=== PATIENT | female | born 1960 | race African-American/Black ===

== ENCOUNTER 2023-02-27 12:50 | Emergency (ER) | payer OTHER, SELFPAY ==
[2023-02-27 13:22] VITALS: BP 174/105; PULSE 73; RESP 18; TEMP 36.7; O2SAT 99; BMI 29.0
--- NOTE | 2023-02-27 13:23 | ED.NECK ---
HPI - Neck Pain/Injury General Chief Complaint: General Medical Stated Complaint: stiff neck Time Seen by Provider: 02/27/23 14:58 Source: patient Mode of arrival: ambulatory Limitations: no limitations History of Present Illness HPI Narrative: 62 yo female presents to the ER for evaluation of acute on chronic right sided neck pain. She reports history of prior surgery on the neck with chronic pain and has been going to physical therapy. She states 4 days ago she had a deep tissue massage at and has had worsening pain and stiffness on the right side of her neck. No headache. She states her neck feels tight and the pain is worse with any palpation or movement. MD complaint: neck pain Onset (ago): day(s) Place: home Radiation: right lateral Severity: severe Quality: aching and spasming Duration: progressively worsening Relieving factors: none Exacerbating factors: movement of extremity and movement of neck Treatments prior to arrival: none Related Data Previous Rx's Medication Instructions Recorded diazepam 5 mg tablet (Valium) 5 mg PO BID PRN muscle spasm #6 02/27/23 tabs lidocaine 5 % topical patch 1 patch topical DAILY #15 ea 02/27/23 naproxen 500 mg tablet 500 mg PO BID PRN pain #20 tabs 02/27/23 oxycodone 5 mg tablet 5 mg PO Q8H PRN severe pain (scale 02/27/23 score 7-10) #9 tabs Allergies Allergy/AdvReac Type Severity Reaction Status Date / Time sumatriptan [From IMITREX] Allergy Unknown CHEST Unverified 06/06/20 18:55 TIGHTNESS PMFSH Social History Social History Advance Directives: Yes Advance Directives Information Provided: No Advance Directives on File: No Physical Exam Vital Signs: Vital Signs: Last Vital Signs Temp 98.0 F 02/27/23 13:22 Pulse 73 02/27/23 13:22 Resp 18 02/27/23 13:22 BP 174/105 H 02/27/23 13:22 Pulse Ox 99 02/27/23 13:22 O2 Del Method Room Air 02/27/23 13:22 BMI result Body Mass Index 29.0 Appearance: Alert. Oriented X3. tearful Head: normocephalic, atraumatic. Eyes: Pupils equal, round and reactive to light. ENT: Pharynx normal. No tonsillar swelling or exudate. Neck: Normal inspection. well healed midline surgical scar. right sided diffuse soft tissue tenderness and palpable spasm extending to the upper trapezius with limited ROM. CVS: Normal heart rate and rhythm. Pulses normal. Respiratory: No respiratory distress. Breath sounds normal. Skin: Skin warm and dry. Normal skin color. Normal skin turgor. No rashes. Extremities: No lower extremity edema. No joint swelling. pain with passive ROM of the right shoulder to 180 degrees Neuro/psych: Oriented X 3. No motor deficit. No sensory deficit. CN II-XII intact. Normal speech and cognition. Course Course Course Narrative: RME- 62 yo female presents to the ER for evaluation of severe nontraumatic bilateral neck pain that started a few days ago after a deep tissue massage a PT. hx rods in the neck. extreme soft tissue tenderness and spasm on exam. no relief with baclofen at home. Plan: medicate and reassess Reevaluation(s) Reevaluation #1: fells much better after meds. stable for d/c home with pain control and outpatient follow up Time: 16:18 Medications Administered Discontinued Medications Generic Name Dose Route Start Last Admin Trade Name Jesusq PRN Reason Stop Dose Admin Diazepam 5 mg 02/27/23 14:58 02/27/23 15:10 Diazepam 10 Mg/2 Ml Cartridge IM 02/27/23 14:59 5 mg STAT STA Administration Ketorolac Tromethamine 30 mg 02/27/23 14:58 02/27/23 15:11 Ketorolac Tromethamine 30 Mg/Ml Vial IM 02/27/23 14:59 30 mg ONCE ONE Administration Oxycodone HCl 5 mg 02/27/23 15:01 02/27/23 15:11 Oxycodone Hcl Immed Release 5 Mg Tablet PO 02/27/23 15:02 5 mg ONCE ONE Administration Medical Decision Making Medical Decision Making MDM Narrative: 62 yo female presents to the ER for evaluation of acute on chronic neck pain after a deep tissue massage 3 days ago at PT. She reports history of similar flare ups in the past. No chiropractic maniculation of the spine. No popping sensation, no headache. doubt carotid dissection. she has tenderness and limited ROM of the muscles on the right side of the neck c/w cervical dystonia. she is tearful and in pain on arrival treated with valium, toradol and oxycodone with improvement in her pain she is stable for d/c with pain control and outpatient follow up Differential Diagnosis Differential Diagnoses: The differential diagnosis associated with the presentation includes torticollism, cervical strain/cervical spasm, less likely dissection Tests considered The following testing was considered but not selected: considered imaging of the neck however deferred given history and exam Prescription Management I considered prescription management with: Pain Medication Critical Care Time Critical Care Time Critical Care Time: No Discharge Plan Discharge Clinical Impression: Acute torticollis Patient Disposition: Home, Self-Care Instructions: Spasmodic Torticollis (ED) Additional Instructions: use moist heat to the area 3-4 times per day, low to medium heat for 20-30 minutes at a time gently work on stretching and range of motion take the prescribed medications as directed do not drive after taking diazepam or oxycodone follow up with your doctor next week If you develop new or worsening symptoms call 911 or come back to the ER for further evaluation. Prescriptions: New diazepam [Valium] 5 mg tablet 5 mg PO BID PRN (Reason: muscle spasm) Qty: 6 0RF oxycodone 5 mg tablet 5 mg PO Q8H PRN (Reason: severe pain (scale score 7-10)) Qty: 9 0RF Rx Instructions: Partial Fill upon patient request. lidocaine 5 % adhesive patch,medicated 1 patch topical DAILY Qty: 15 0RF Rx Instructions: leave on most painful area for up to 12 hrs naproxen 500 mg tablet 500 mg PO BID PRN (Reason: pain) Qty: 20 0RF Referrals: Halina Moore MD [Primary Care Provider] -
[2023-02-27] MEDS: diazePAM 10 MG/2 ML CARTRIDGE 5 MG IM (15:10)
[2023-02-27] MEDS: Ketorolac Tromethamine 30 MG/ML VIAL IM (15:11)
[2023-02-27] MEDS: oxyCODONE HCl Immed Release 5 MG TABLET PO (15:11)
== END 2023-02-27 16:24 | disposition home or self-care (01) ==
PROVIDERS: Emergency Provider Emergency Medicine; PCP Student in an Organized Health Care Education/Training Program
DX: M43.6 Torticollis (principal)
CPT/HCPCS: 96372; 99283; 99284; J1885; J3360

== ENCOUNTER 2023-08-13 11:42 | Emergency (ER) | payer OTHER, SELFPAY ==
--- NOTE | ~2023-08-13 | CT_ITS ---
EXAMINATION: CT ANGIOGRAM CHEST CLINICAL INFORMATION: Chest pain, back pain. COMPARISON: Chest radiograph from earlier the same day TECHNIQUE: Multiple axial images were obtained through the chest after the administration of 70 mL of Omnipaque 350 intravenous contrast. Extensive vascular post-processing including two-dimensional and three-dimensional reformatted images were created and reviewed on an independent workstation. This CT examination was performed using dose optimization techniques as appropriate, variously including the following: *Automated exposure control *Adjustment of mA and/or kV according to patient size (this includes techniques or standardized protocols for targeted exams where dose is matched to indication/reason for exam; i.e. extremities or head) *Use of iterative reconstruction technique DLP: 314 mGy-cm FINDINGS: Vascular: Normal caliber thoracic aorta measuring 3.3 x 3.3 cm at the level the main pulmonary artery. There is a two-vessel aortic arch with early bifurcation of the left carotid from the brachiocephalic artery. Great vessels are all widely patent hemodynamically significant stenosis. There is atherosclerotic calcification of the inferior aspect of the arch. Normal caliber descending thoracic aorta without aneurysm or dissection. The visualized celiac artery and SMA appear patent at their origin. LUNGS: There is mild bronchial wall thickening suggesting small airways disease, no consolidation. Some mild dependent atelectasis in the lung bases. Calcified granuloma in the right upper lobe. No suspicious pulmonary nodules. Pleura: No pleural effusion or pneumothorax. Mediastinum: Enlarged heterogeneous right thyroid gland with a suspected 1.6 cm right thyroid nodule. No mediastinal lymphadenopathy. Normal heart size, no pericardial effusion. No significant coronary artery calcifications. Axilla: No axillary lymphadenopathy. Upper abdomen: Postsurgical change in the stomach. Status post cholecystectomy. There is a low-attenuation left adrenal nodule measuring 3.5 x 2.6 cm mild spondylitic changes in the thoracic spine. No acute abnormalities. CT/CT angio chest aorta IMPRESSION: 1. No acute vascular abnormality in the chest. No aneurysm or dissection. 2. Mild bronchial wall thickening suggesting small airways disease. No consolidation. 3. Enlarged heterogeneous right thyroid gland with a suspected 1.6 cm right thyroid nodule. This can be further evaluated with nonemergent thyroid ultrasound. 4. Low-attenuation left adrenal nodule measuring 3.5 x 2.6 cm. Nonspecific. This can be further evaluated with nonemergent adrenal mass CT or MRI. Fleischner guidelines were followed.
--- NOTE | ~2023-08-13 | XR_ITS ---
EXAMINATION: XR CHEST CLINICAL INFORMATION: Reason for Exam cough COMPARISON: No prior imaging available at the time of dictation. TECHNIQUE: One view of the chest FINDINGS: Lines and tubes: Surgical clips overlie the upper abdomen. Clear lungs. No pleural effusion. No pneumothorax. Ectatic thoracic aorta. Normal cardiac silhouette. XR/XR chest 1V IMPRESSION: 1. Clear lungs. 2. Ectatic thoracic aorta.
[2023-08-13 11:56] VITALS: BP 164/86; PULSE 60; RESP 16; TEMP 36.6; O2SAT 99; BMI 29.9
--- NOTE | 2023-08-13 11:58 | ED_ITS ---
HPI - General Adult General Chief complaint: Dyspnea Stated complaint: difficulty breathing Time Seen by Provider: 08/13/23 14:28 Source: patient and RN notes reviewed Mode of arrival: ambulatory Limitations: no limitations History of Present Illness HPI narrative: This is a 62-year-old female presenting to the emergency department with productive cough with yellow-colored sputum, sore throat, ear pain, and chest pressure the last 3 days. She states that she was recently exposed to someone with COVID. She also reports that she has had back pain, which worsens with walking, with increased shortness of breath. She states that she has had the symptoms for the last several months. She denies any fevers, chills, abdominal pain, nausea, vomiting or diarrhea. She has been taking [id number] cold medicine without any relief. No other complaints or concerns at this time. MD complaint: Cough Onset (ago): day(s) Radiation: non-radiation Relieving factors: none Exacerbating factors: none Associated symptoms: denies other symptoms Treatments prior to arrival: none Related Data Previous Rx's Medication Instructions Recorded diazepam 5 mg tablet (Valium) 5 mg PO BID PRN muscle spasm #6 02/27/23 tabs lidocaine 5 % topical patch 1 patch topical DAILY #15 ea 02/27/23 naproxen 500 mg tablet 500 mg PO BID PRN pain #20 tabs 02/27/23 oxycodone 5 mg tablet 5 mg PO Q8H PRN severe pain (scale 02/27/23 score 7-10) #9 tabs azithromycin 250 mg tablet See Rx Instructions PO .COMPLEX #6 08/13/23 tabs prednisone 20 mg tablet 40 mg (2 x 20 mg) PO DAILY 5 days 08/13/23 #10 tabs Allergies Allergy/AdvReac Type Severity Reaction Status Date / Time sumatriptan [From IMITREX] Allergy Unknown CHEST Verified 08/13/23 11:56 TIGHTNESS Review of Systems 2 Review of Systems: Yes all other systems are reviewed and are negative Constitutional: Constitutional: Reports as per [facility] Social History Advance Directives: No Advance Directives Information Provided: No Physical Exam ED Vital Signs: Vital Signs - 24 hr 08/13/23 11:56 08/13/23 15:40 Temperature 98 F 98.4 F Pulse Rate 60 53 Respiratory Rate 16 18 Blood Pressure 164/86 H 104/90 H Pulse Oximetry 99 97 Oxygen Delivery Method Room Air Room Air BMI result Body Mass Index 29.9 Const General: cooperative, comfortable and no acute distress Orientation/consciousness: patient oriented x3 Limitations: no limitations HENMT Head: Yes normal to inspection, Yes normocephalic and Yes atraumatic Ears: hearing grossly normal bilaterally and TM's normal bilaterally General nose exam: Normal external nose present Face and sinus: Yes normal facial exam Mouth: Normal oral and palatal mucosa present, oropharynx normal and moist mucous membranes Throat: Yes posterior oropharynx normal Eyes General: appearance normal, both eyes and all related structures Eyelids: Yes eyelids normal Conjunctivae: conjunctivae normal Sclerae: sclerae normal Pupils: Equal, round and reactive pupils present EOM: EOMs intact bilaterally Neck Neck: Yes normal visual inspection, Yes full ROM and Yes no lymphadenopathy Lymphatic: no lymphadenopathy noted Chest Chest palpation & inspection: normal inspection of the chest Resp Effort & Inspection: normal respiratory effort and able to speak in complete sentences Auscultation: clear to auscultation bilaterally, no crackles, no rales, no rhonchi and no wheezes Cardio Rate: regular rate Rhythm: regular rhythm Heart sounds: S1 normal heart sound present and S2 normal heart sound present GI Inspection: Yes normal to inspection Back/Spine/Pelvis Other: Lumbar spine is nontender Skin General skin exam: no rashes or lesions noted Trauma: no lacerations or abrasions Wounds: no wounds Neuro General: patient oriented x3 and moves all extremities Cranial nerves: Yes Equal, round and reactive pupils present Extrem General: Yes normal to inspection Right upper extremity: normal to inspection Left upper extremity: normal to inspection Right lower extremity: normal to inspection Left lower extremity: normal to inspection Course Course Course Narrative: This is a rapid medical exam: Additional HPI, ROS, PE not included below will be deferred to primary provider. Patient is a 62-year-old female presenting to the emergency department with complaint of cough and shortness of breath for 3 days. States she was at a gathering and later found out someone there was Covid positive. Reports right sided chest pain with coughing episodes only. Denies fevers. Plan: EKG, swab for flu/ Covid Reevaluation(s) Reevaluation #1: X-ray is read revealing a ectatic thoracic aorta. Patient has no history of this. Given that patient has had shortness of breath with back pain, will order CTA to ensure no aneurysm or dissection. Labs were also ordered. Patient's vitals have been stable, she has been resting comfortably therefore my suspicion is low however cannot rule out and needs further investigation. Time: 13:50 Reevaluation #2: CTA showing no acute vascular abnormality in the chest. No aneurysm or dissection seen. There is mild bronchial wall thickening suggesting small airway disease, no consolidation. There is also a right thyroid gland nodule, as well as a left adrenal nodule. Discussed this with patient and advised to follow-up with primary care physician regarding this incidental finding. She is aware of the thyroid nodule however was unaware of the left adrenal nodule. I also advised to have her blood work performed in 1 week given low H&H with no previous for comparison. She reports she has no black or bloody stool. She will follow-up with her primary care physician. Unclear if the symptoms are viral versus bacterial, Will treat with azithromycin and prednisone, advised to follow-up with primary care physician, given return precautions. Patient understands agrees with plan. Patient stable for discharge. Time: 19:27 Medications Administered Discontinued Medications Generic Name Dose Route Start Last Admin Trade Name Freq PRN Reason Stop Dose Admin Iohexol 70 ml 08/13/23 16:20 08/13/23 16:21 Iohexol 350 Mg/Ml 100 Ml Infus..Btl IV 08/13/23 16:21 70 ml ONCE ONE Administration Medical Decision Making Medical Decision Making [facility] Narrative: 62-year-old female, with a history of hypertension, presenting to the emergency department with complaints of cough, fatigue, shortness breath, and intermittent back pain. She states that her symptoms started 3 days ago. She also reports that she has had worsening fatigue over the last several months. She has followed her primary care doctor for this however believes that she was written off without a full workup. On arrival, patient mildly hypertensive at 164/86. Patient is nontoxic appearing, speaking in full sentences. Lungs are clear to auscultation bilaterally. EKG was performed showing normal sinus rhythm, no ST elevation or depression. Plan: Viral swabs, chest x-ray, EKG Differential Diagnosis Differential Diagnoses: The differential diagnosis associated with the presentation includes Pneumonia, AAA-unlikely, COVID, RSV, bronchitis, reactive airway disease Admission/Observation Consideration of admission/observation: Escalation of care including admission/observation considered Patient would have been admitted to the hospital had her work up had any findings where hospital admission was appropriate and her clinical presentation warranted hospital admission. Lab Data MDM Lab Attestation statement: I reviewed the patient's lab results. No leukocytosis, normocytic anemia with an H&H of 10.5/34.1, chemistry within normal limits. Troponin less than 2.7, BNP 62. Negative COVID, RSV, flu. 08/13/23 15:24 08/13/23 15:24 Labs: Lab Results 08/13/23 08/13/23 Range/Units 12:16 15:24 WBC 8.6 (4.8-10.8) X10*3/uL RBC 3.92 L (4.20-5.50) X10*6/uL Hgb 10.5 L (12.0-16.0) g/dl Hct 34.1 L (37.0-47.0) % MCV 87.0 (80.0-98.0) fL MCH 26.8 L (27.0-33.0) pg MCHC 30.8 L (31.0-35.0) g/dl RDW 14.5 (11.0-16.0) % Plt Count 234 (160-400) X10*3/uL MPV 10.4 (9.4-12.3) fL Immature Gran % (Auto) 0.1 (0.0-0.4) % Neut % (Auto) 51.1 (45-73) % Lymph % (Auto) 40.4 H (20-40) % [place] % (Auto) 7.5 (2-11) % Eos % (Auto) 0.6 (0-4) % Baso % (Auto) 0.3 (0-2) % Lymph # (Auto) 3.5 (1.2-4.9) X10*3/uL [place] # (Auto) 0.7 (0.1-1.2) X10*3/uL Eos # (Auto) 0.1 (0.0-0.4) X10*3/uL Baso # (Auto) 0.0 (0.0-0.2) X10*3/uL Abs Immat Gran (auto) 0.01 (0.00-0.03) X10*3/uL Absolute Neuts (auto) 4.4 (2.0-8.3) x10*3/uL Absolute Nucleated RBC 0.000 (0.0-0.012) X10*3/uL Nucleated RBC % (auto) 0.0 (0.0-0.2) /100WBC PT 11.0 L (11.1-13.3) SEC INR 0.9 (0.9-1.1) APTT 27.3 (26.0-36.4) SEC Sodium 145 (135-145) mmol/L Potassium 3.8 (3.3-5.1) mmol/L Chloride 110 H (96-108) mmol/L Carbon Dioxide 29 (22-29) mmol/L Anion Gap 10 L (12-20) BUN 12 (9-16) mg/dL Creatinine 0.80 (0.5-1.4) mg/dL Estim Creat Clear Calc 77.5 Estimated GFR > 60 Random Glucose 77 (60-115) mg/dL Calcium 9.0 (8.4-10.2) mg/dL Magnesium 1.9 (1.6-2.6) mg/dL Total Bilirubin 0.3 (0.0-1.0) mg/dL Direct Bilirubin 0.1 (0.0-0.5) mg/dL AST 13 (5-31) U/L ALT 10 (0-31) U/L Alkaline Phosphatase 88 (39-117) U/L Troponin I High Sens < 2.7 (<3.5-17.0) ng/L B-Natriuretic Peptide 62 (<100) pg/mL Total Protein 7.2 (6.5-8.0) g/dL Albumin 3.7 (3.5-5.0) g/dL COVID-19 (MAX) Negative (Negative) COVID-19 Clin Com See Note Influenza Type A (BUSTER) Negative (Negative) Influenza Type B (BUSTER) Negative (Negative) Influenza A & B Note See Note Independent Interpretation I performed an independent interpretation of an: Rhythm Strip Interpretation: Normal sinus rhythm with ventricular rate of 61 beats per minute, AK interval 140, QRS 82, QTC 414. Radiology Impression Discussion of test interpretation with radiology: I have reviewed the radiologist's reading. Radiologist Impression: EXAMINATION: XR CHEST CLINICAL INFORMATION: Reason for Exam cough COMPARISON: No prior imaging available at the time of dictation. TECHNIQUE: One view of the chest FINDINGS: Lines and tubes: Surgical clips overlie the upper abdomen. Clear lungs. No pleural effusion. No pneumothorax. Ectatic thoracic aorta. Normal cardiac silhouette. XR/XR chest 1V IMPRESSION: 1. Clear lungs. 2. Ectatic thoracic aorta. Dictated By: Aurelia Aguilera MD External Record Review External record reviewed: Inpatient record, Office record, Outpatient record, Prior outpatient labs, Prior outpatient radiology, Primary care record and Outside ED record Critical Care Time Critical Care Time Critical Care Time: Yes Total Critical Care Time: 45 Attestation: I have personally provided critical care time exclusive of time spent on separately billable procedures. Time includes review of lab data, radiology results, discussion with consultants, and monitoring for potential decompensation. Intervention performed as documented. Discharge Plan Discharge Clinical Impression: Small airways disease, Bronchiolitis Patient Disposition: Home, Self-Care Instructions: How Your Lungs Work (ED) Additional Instructions: Your CT scan shows bronchial wall thickening, this may be due to a virus or a bacterial infection. I am prescribing you 2 medications, one medication is prednisone, this helps reduce inflammation, I am also prescribing you an antibiotic called azithromycin, please take as prescribed. Your labs are reassuring. You had a normal measuring aorta. You also have a 1.6 cm thyroid nodule. You also had a left adrenal nodule. These need to be followed by her primary care physician. Please call on Wednesday. If any new or worsening symptoms occur including but not limited to chest pain, shortness breath, fevers, chills, please return for re-evaluation. Prescriptions: New prednisone 20 mg tablet 40 mg PO DAILY 5 Days Qty: 10 0RF azithromycin 250 mg tablet See Rx Instructions PO .COMPLEX Qty: 6 0RF Rx Instructions: For 250 mg dose pack: take 500 mg today (day 1), then 250 mg for 4 days (days 2-5) No Action diazepam [Valium] 5 mg tablet 5 mg PO BID PRN (Reason: muscle spasm) Qty: 6 0RF oxycodone 5 mg tablet 5 mg PO Q8H PRN (Reason: severe pain (scale score 7-10)) Qty: 9 0RF Rx Instructions: Partial Fill upon patient request. lidocaine 5 % adhesive patch,medicated 1 patch topical DAILY Qty: 15 0RF Rx Instructions: leave on most painful area for up to 12 hrs naproxen 500 mg tablet 500 mg PO BID PRN (Reason: pain) Qty: 20 0RF Interventions: ED Discharge Assessment Last Done: 08/13/23 19:08 Discharge Date/Time: 08/13/23 19:08
--- NOTE | 2023-08-13 11:59 | ECG_ITS ---
Test Reason : CP WHEN COUGHING Blood Pressure : / mmHG Vent. Rate : 061 BPM Atrial Rate : 061 BPM P-R Int : 140 ms QRS Dur : 082 ms QT Int : 412 ms P-R-T Axes : 064 016 044 degrees QTc Int : 414 ms Normal sinus rhythm Nonspecific ST abnormality Abnormal ECG When compared with ECG of 23-MAR-2015 17:18, ND interval has increased Non-specific change in ST segment in Anterior leads Referred By: Kimber Scott Electronically Signed By:KULDIP VGIIL MD
[2023-08-13 12:40] LABS: COVID-19 Test Negative (Negative); IDNOW Serial# 9DB6401D; IDNOW Serial# BCCEAD1C; Influenza A Negative (Negative); Influenza B2 Negative (Negative)
--- NOTE | 2023-08-13 14:43 | PC.NURSE ---
Addendum entered by Camryn Lang RN 08/13/23 14:45: rr even/unlabored. no retractions. no wheezing. Original Note: pt a&o x4, anxious but cooperative. pt changed over to hospital attire. placed on bedside monitor. pt sts she is sob but thinks it is her lungs not her heart. pt O2 sat 100% on room air. resting quietly. call goyal within reach.
[2023-08-13 15:29] LABS: MANUAL DIFF FLAG NO
[2023-08-13 15:32] LABS: Basophils Percent Auto 0.3 % (0-2); Eosinophils Absolute Auto 0.1 X10*3/uL (0.0-0.4); Eosinophils Percent Auto 0.6 % (0-4); Hematocrit 34.1 % (37.0-47.0); Hemoglobin 10.5 g/dl (12.0-16.0); Imm Gran Abs Auto 0.01 X10*3/uL (0.00-0.03); Imm Gran Pct Auto 0.1 % (0.0-0.4); Lymphocytes Absolute Auto 3.5 X10*3/uL (1.2-4.9); Lymphocytes Percent Auto 40.4 % (20-40); Mean Corpuscular HGB Conc 30.8 g/dl (31.0-35.0); Mean Corpuscular Hemoglobin 26.8 pg (27.0-33.0); Mean Platelet Volume 10.4 fL (9.4-12.3); Monocytes Absolute Auto 0.7 X10*3/uL (0.1-1.2); Monocytes Percent Auto 7.5 % (2-11); Neutrophils Absolute Auto 4.4 x10*3/uL (2.0-8.3); Neutrophils Percent Auto 51.1 % (45-73); Platelet Count 234 X10*3/uL (160-400); Red Blood Count 3.92 X10*6/uL (4.20-5.50); Red Cell Distribution Width 14.5 % (11.0-16.0); White Blood Count 8.6 X10*3/uL (4.8-10.8)
[2023-08-13 15:39] LABS: INTERNATIONAL NORM RATIO 0.9 (0.9-1.1)
[2023-08-13 15:40] VITALS: BP 104/90; PULSE 53; RESP 18; TEMP 36.9; O2SAT 97
[2023-08-13 15:42] LABS: Partial Thromboplastin Time 27.3 SEC (26.0-36.4)
[2023-08-13 15:49] LABS: Alanine Aminotransferase 10 U/L (0-31); Albumin Level 3.7 g/dL (3.5-5.0); Alkaline Phosphatase 88 U/L (39-117); Anion Gap 10 (12-20); Aspartate Amino Transferase 13 U/L (5-31); Bilirubin Direct 0.1 mg/dL (0.0-0.5); Bilirubin Total 0.3 mg/dL (0.0-1.0); Blood Urea Nitrogen 12 mg/dL (9-16); Carbon Dioxide 29 mmol/L (22-29); Chloride 110 mmol/L (96-108); Creatinine Clr Calc Pharmacy 77.5; Estimated Glomerular Filt Rate > 60; Glucose Random 77 mg/dL (60-115); Magnesium 1.9 mg/dL (1.6-2.6); Potassium 3.8 mmol/L (3.3-5.1); Sodium 145 mmol/L (135-145); Total Protein 7.2 g/dL (6.5-8.0)
[2023-08-13 15:53] LABS: B Type Natriuretic Peptide 62 pg/mL (<100)
[2023-08-13 15:57] LABS: Troponin-I High Sensitivity < 2.7 ng/L (<3.5-17.0)
[2023-08-13] MEDS: iohexoL 350 MG/ML 100 ML INFUS..BTL 70 ML IV (16:21)
== END 2023-08-13 19:08 | disposition home or self-care (01) ==
PROVIDERS: Physician Assistant Medical; Registered Nurse Emergency; Emergency Provider Emergency Medicine
DX: J21.9 Acute bronchiolitis, unspecified (principal); R07.89 Other chest pain; R06.02 Shortness of breath; R05.9 Cough, unspecified; Z79.899 Other long term (current) drug therapy; Z11.52 Encounter for screening for COVID-19; Z20.822 Contact with and (suspected) exposure to COVID-19
CPT/HCPCS: 36415; 71045; 71275; 80048; 80076; 83735; 83880; 84484; 85025; 85610; 85730; 87502; 87635; 93005; 99283; 99284; Q9967

== ENCOUNTER 2024-06-09 11:29 | Emergency (ER) | payer OTHER, SELFPAY ==
--- NOTE | ~2024-06-09 | CT_ITS ---
EXAMINATION: CT ABDOMEN AND PELVIS WITH CONTRAST CLINICAL INFORMATION: Left upper quadrant abdominal pain COMPARISON: CT angiography chest August 13, 2023 TECHNIQUE: Multidetector volumetric images were obtained from the superior aspect of the liver through the pubic symphysis following administration 85 mL of Omnipaque 350 intravenous contrast. Sagittal and coronal reformatted images were obtained on the technologist's workstation. Oral contrast: No This CT examination was performed using dose optimization techniques as appropriate, variously including the following: *Automated exposure control *Adjustment of mA and/or kV according to patient size (this includes techniques or standardized protocols for targeted exams where dose is matched to indication/reason for exam; i.e. extremities or head) *Use of iterative reconstruction technique DLP: 531 mGy-cm FINDINGS: LUNG BASES: Linear scarring at lung bases. LIVER, GALLBLADDER, AND BILIARY TREE: The liver is normal in size, shape, and attenuation. No focal hepatic lesion or biliary ductal dilatation is present. Status post cholecystectomy. Chronic dilatation of the extrahepatic CBD. PANCREAS: Unremarkable. SPLEEN: Unremarkable. ADRENAL GLANDS: There is a low attenuating mass involving the left adrenal gland measuring 3.6 x 2.7 cm. Density measurement 24 Hounsfield units. This is unchanged since CTA chest August 13, 2023. This is indeterminate. Recommend consideration of laboratory evaluation for possible pheochromocytoma and then subsequent evaluation with Adrenal Protocol CT. Right adrenal gland is normal. KIDNEYS AND URETERS: The kidneys are normal in size, shape, and attenuation. No hydronephrosis, hydroureter, or calculi seen. No perinephric stranding. BLADDER: Unremarkable. GASTROINTESTINAL TRACT: Status post gastric surgery is also a surgical suture line associated with small bowel loops in the upper abdomen and another in the low central pelvis. No acute abnormality of the bowel. No bowel obstruction. No bowel wall thickening or. Moderate volume of stool:. The appendix is nonvisualized. ABDOMINAL WALL: No significant hernia is appreciated. LYMPH NODES: Normal. VASCULAR: Vascular calcifications of the wall of the aorta and iliac arteries. No aneurysm. PELVIC VISCERA: Uterus is anteverted. Coarse calcifications in the fundus of the uterus. No adnexal abnormality. OSSEOUS STRUCTURES: Multilevel degenerative spondylosis spine. Status post fusion with transpedicular screws and disc spacers at L4-L5. Bilateral laminectomy at this level. CT/CT abdomen pelvis w IV con IMPRESSION: 1. No acute abnormality CT scan abdomen pelvis. 2. Status post cholecystectomy. Chronic dilatation of the extrahepatic CBD. 3. Status post gastric surgery. No acute abnormality of the bowel. 4. Indeterminate left adrenal mass. Recommend consideration of laboratory evaluation for possible pheochromocytoma and then subsequent evaluation with Adrenal Protocol CT. The left adrenal lesion has not changed since CT chest August 13, 2023. Fleischner guidelines were followed. Electronically signed by: Isaak Salguero MD 06/09/2024 03:28 PM EDT
[2024-06-09 11:37] VITALS: BP 167/86; PULSE 60; RESP 18; TEMP 36.4; O2SAT 97; BMI 28.5
--- NOTE | 2024-06-09 11:38 | ED.ABDPAIN ---
HPI - Abdominal Pain General Chief Complaint: Abdominal Pain Stated Complaint: Pancreatitis Time Seen by Provider: 06/09/24 11:46 Source: patient Mode of arrival: ambulatory Limitations: no limitations History of Present Illness ED Provider: Scarlett GEORGE HPI narrative: This is a 63-year-old female history of obesity, pancreatitis presenting to the emergency department with a week of left upper quadrant pain with radiation into left flank region. Pain is been worsening ever since she reports she has been taking tramadol which she had at home with little to no relief. Patient reports she has a remote history of gastric bypass in 2006 and history of cholecystitis. Patient reports pain 10/10 and constant in nature. She also reports she has been burping foul smelling burps over the past few days. Denies fevers, chills, chest pain, shortness of breath, nausea, vomiting, diarrhea, headache, vision changes, dizziness and weakness. Related Data Previous Rx's ?Medication ?Instructions ?Recorded diazepam 5 mg tablet (Valium) 5 mg PO BID PRN muscle spasm #6 02/27/23 tabs lidocaine 5 % topical patch 1 patch topical DAILY #15 ea 02/27/23 naproxen 500 mg tablet 500 mg PO BID PRN pain #20 tabs 02/27/23 oxycodone 5 mg tablet 5 mg PO Q8H PRN severe pain (scale 02/27/23 score 7-10) #9 tabs azithromycin 250 mg tablet See Rx Instructions PO .COMPLEX #6 08/13/23 tabs prednisone 20 mg tablet 40 mg (2 x 20 mg) PO DAILY 5 days 08/13/23 #10 tabs Allergies Allergy/AdvReac Type Severity Reaction Status Date / Time sumatriptan [From IMITREX] Allergy Unknown CHEST Verified 06/09/24 11:40 TIGHTNESS Review of Systems Review of Systems Yes all other systems are reviewed and are negative PMFSH Past Medical History Attestation statement: The following information was validated with the patient. Source: old records reviewed and nursing notes reviewed Social History Social History Smoked in Last 30 Days: No Use of substances other than those prescribed or required for medical reasons: No Advance Directives: No Advance Directives Information Provided: Yes Physical Exam ED Vital Signs: Vital Signs - 24 hr 06/09/24 11:37 09/20/24 13:06 06/09/24 15:22 Temperature 97.6 F 97.7 F 97.7 F Pulse Rate 60 48 L 48 L Respiratory Rate 18 13 13 Blood Pressure 167/86 H 161/70 H 161/70 H Pulse Oximetry 97 98 98 Oxygen Delivery Method Room Air Room Air Room Air BMI result Body Mass Index 28.5 vss Appearance: Alert.? Oriented X3.? No acute distress.? Head: Normocephalic, atraumatic, no step-offs or deformities Eyes: Pupils equal, round and reactive to light.? ENT: Pharynx normal.? Neck: Normal inspection.? Neck supple.? CVS: Normal heart rate and rhythm.? Pulses normal.? Respiratory: No respiratory distress.? Breath sounds normal.? Abdomen: Soft and +LUQ pain w/ radiation to the back.? Skin: Skin warm and dry.? Normal skin color.? Normal skin turgor.? Extremities: No lower extremity edema.? No calf ttp. 5/5 strength to bilateral upper and lower extremities Back: No midline tenderness, no C-spine tenderness, full range of motion, no CVA tenderness bilaterally Neuro: Oriented X 3.? No motor deficit.? No sensory deficit. CN 2-12 intact . No saddle anesthesias. Ambulating with steady gait normal coordination. Course Course Course Narrative: This is a Rapid Medical Examination (RME) performed by Sawyer Lemus PA-C in triage. Full HPI, ROS, assessment and treatment plan per primary provider in the Main ED. 63 yo female hx of pancreatitis, nephrolithiasis, s/p gastric bypass, s/p cholecystectomy here w/ LUQ pain radiating to her back x1 week. unable to sleep/ eat d/t pain. states i feel like the pain is going into my kidneys . assoc belching and constipation, had small BM this morning. no fever, chills, N/V, diarrhea, dysuria,, hematuria. takes tramadol for chronic neck/ back pain, stats this is not touching her abd pain. last dose last night. + appears uncomfortable. abd soft. ND. ttp of epigastric and LUQ with voluntary guarding. +left CVAT Plan: labs, UA Medical Decision Making Medical Decision Making MDM Narrative: 63 year old female presents with left upper quadrant abdominal pain with radiation into her back, ongoing for the past week. Physical exam left upper quadrant pain and left-sided flank pain on exam. History and physical exam concerning for pancreatitis. Will also rule out gallstones. Unlikely acute abdomen, obstruction, necrosis. Will rule out metabolic derangements. Will also rule out UTI. Plan labs, imaging, urine Differential Diagnosis Differential Diagnoses: The differential diagnosis associated with the presentation includes (History and physical exam concerning for pancreatitis. Will also rule out gallstones. Unlikely acute abdomen, obstruction, necrosis. Will rule out metabolic derangements. Will also rule out UTI.) Admission/Observation Consideration of admission/observation: Escalation of care including admission/observation considered Lab Data MDM Lab Attestation statement: I reviewed the patient's lab results. 06/09/24 11:55 06/09/24 11:55 Labs: Lab Results 06/09/24 06/09/24 Range/Units 11:55 12:16 WBC 6.7 (4.8-10.8) X10*3/uL RBC 3.79 L (4.20-5.50) X10*6/uL Hgb 10.5 L (12.0-16.0) g/dl Hct 33.0 L (37.0-47.0) % MCV 87.1 (80.0-98.0) fL MCH 27.7 (27.0-33.0) pg MCHC 31.8 (31.0-35.0) g/dl RDW 15.8 (11.0-16.0) % Plt Count 201 (160-400) X10*3/uL MPV 10.6 (9.4-12.3) fL Immature Gran % (Auto) 0.1 (0.0-0.4) % Neut % (Auto) 56.3 (45-73) % Lymph % (Auto) 34.7 (20-40) % [place] % (Auto) 7.7 (2-11) % Eos % (Auto) 0.6 (0-4) % Baso % (Auto) 0.6 (0-2) % Lymph # (Auto) 2.3 (1.2-4.9) X10*3/uL [place] # (Auto) 0.5 (0.1-1.2) X10*3/uL Eos # (Auto) 0.0 (0.0-0.4) X10*3/uL Baso # (Auto) 0.0 (0.0-0.2) X10*3/uL Abs Immat Gran (auto) 0.01 (0.00-0.03) X10*3/uL Absolute Neuts (auto) 3.8 (2.0-8.3) x10*3/uL Absolute Nucleated RBC 0.000 (0.0-0.012) X10*3/uL Nucleated RBC % (auto) 0.0 (0.0-0.2) /100WBC ESR 29 H (0-20) MM/HR PT 10.6 L (10.9-12.4) SEC INR 0.9 (0.9-1.1) Sodium 144 (135-145) mmol/L Potassium 3.6 (3.3-5.1) mmol/L Chloride 110 H (96-108) mmol/L Carbon Dioxide 26 (22-29) mmol/L Anion Gap 12 (12-20) BUN 11 (9-16) mg/dL Creatinine 0.79 (0.5-1.4) mg/dL Estim Creat Clear Calc 78.4 Estimated GFR > 60 Random Glucose 68 (60-115) mg/dL Calcium 8.5 (8.4-10.2) mg/dL Magnesium 1.9 (1.6-2.6) mg/dL Total Bilirubin 0.4 (0.0-1.0) mg/dL Direct Bilirubin 0.1 (0.0-0.5) mg/dL AST 11 (5-31) U/L ALT 8 (0-31) U/L Alkaline Phosphatase 84 (39-117) U/L Troponin I High Sens < 2.7 (<3.5-17.0) ng/L C-Reactive Protein 0.61 H (< or = 0.50) mg/dL Total Protein 6.9 (6.5-8.0) g/dL Albumin 3.6 (3.5-5.0) g/dL Triglycerides 82 (<150) mg/dL Lipase 23 (8-78) U/L Urine Color Yellow Urine Appearance Cloudy Urine pH 6.0 (5.0-9.0) Ur Specific [place] 1.015 (1.005-1.025) Urine Protein Negative (Neg-Trace) mg/dL Urine Glucose (UA) Negative (Negative) mg/dL Urine Ketones Negative (Negative) mg/dL Urine Blood Negative (Negative) Urine Nitrite Positive H (Negative) Ur Leukocyte Esterase Moderate (2+) H (Negative) Urine RBC 0-2 (0-2) /HPF Urine WBC >50 H (0-5) /HPF Ur Squamous Epith Cells 0-2 (0-2) /HPF Urine Bacteria 4+ (None Seen) Hyaline Casts 0-2 (0-2) /LPF Independent Interpretation I performed an independent interpretation of an: CT Scan Radiology Impression Discussion of test interpretation with radiology: I have reviewed the radiologist's reading. External Record Review External record reviewed: Outpatient record Chronic Conditions Patient?s care impacted by: Other (Pancreatitis, obesity) Medications Administered Discontinued Medications Generic Name Dose Route Start Last Admin Trade Name Freq PRN Reason Stop Dose Admin Ceftriaxone Sodium 1 gm/ 50 mls @ 100 mls/hr 06/09/24 12:26 06/09/24 14:40 Sodium Chloride IV 06/09/24 12:55 Infused ONCE ONE Infusion Sodium Chloride 2,476.62 mls @ 2,476.62 mls/hr 06/09/24 12:26 06/09/24 12:50 Ns 30 ml/kg infuse over 1 hr (2476.62 ml) 06/09/24 13:25 2,476.62 mls/hr IV Administration .Q1H STA Iohexol 100 ml 06/09/24 13:26 06/09/24 13:26 Iohexol 350 Mg/Ml 100 Ml Infus..Btl IV 06/09/24 13:27 85 ml ONCE ONE Administration Morphine Sulfate 4 mg 06/09/24 12:42 06/09/24 12:50 Morphine Sulfate 4 Mg/Ml Cartridge IVPUSH 06/09/24 12:43 4 mg ONCE ONE Administration Protocol Discharge Plan Discharge Clinical Impression: Abdominal pain Patient Disposition: Left Against Medical Advice Prescriptions: No Action prednisone 20 mg tablet 40 mg PO DAILY 5 Days Qty: 10 0RF azithromycin 250 mg tablet See Rx Instructions PO .COMPLEX Qty: 6 0RF Rx Instructions: For 250 mg dose pack: take 500 mg today (day 1), then 250 mg for 4 days (days 2-5) diazepam [Valium] 5 mg tablet 5 mg PO BID PRN (Reason: muscle spasm) Qty: 6 0RF oxycodone 5 mg tablet 5 mg PO Q8H PRN (Reason: severe pain (scale score 7-10)) Qty: 9 0RF Rx Instructions: Partial Fill upon patient request. lidocaine 5 % adhesive patch,medicated 1 patch topical DAILY Qty: 15 0RF Rx Instructions: leave on most painful area for up to 12 hrs naproxen 500 mg tablet 500 mg PO BID PRN (Reason: pain) Qty: 20 0RF Stand Alone Forms: Against Medical Advice Interventions: ED Discharge Assessment Last Done: 06/09/24 15:22 Discharge Date/Time: 06/09/24 15:25 Print Language: Bulgarian
[2024-06-09 12:02] LABS: MANUAL DIFF FLAG NO
[2024-06-09 12:03] LABS: Basophils Percent Auto 0.6 % (0-2); Eosinophils Percent Auto 0.6 % (0-4); Hemoglobin 10.5 g/dl (12.0-16.0); Imm Gran Abs Auto 0.01 X10*3/uL (0.00-0.03); Imm Gran Pct Auto 0.1 % (0.0-0.4); Lymphocytes Absolute Auto 2.3 X10*3/uL (1.2-4.9); Lymphocytes Percent Auto 34.7 % (20-40); Mean Corpuscular HGB Conc 31.8 g/dl (31.0-35.0); Mean Corpuscular Hemoglobin 27.7 pg (27.0-33.0); Mean Corpuscular Volume 87.1 fL (80.0-98.0); Mean Platelet Volume 10.6 fL (9.4-12.3); Monocytes Absolute Auto 0.5 X10*3/uL (0.1-1.2); Monocytes Percent Auto 7.7 % (2-11); Neutrophils Absolute Auto 3.8 x10*3/uL (2.0-8.3); Neutrophils Percent Auto 56.3 % (45-73); Platelet Count 201 X10*3/uL (160-400); Red Blood Count 3.79 X10*6/uL (4.20-5.50); Red Cell Distribution Width 15.8 % (11.0-16.0); White Blood Count 6.7 X10*3/uL (4.8-10.8)
[2024-06-09 12:04] LABS: Appearance Urine Cloudy; Color Urine Yellow; Glucose Urine UA Negative (Negative); Leukocyte Esterase Urine Moderate (2+) (Negative); Nitrite Urine Positive (Negative); Specific Gravity - Urine 1.015 (1.005-1.025); UMIC TRIGGER UACC YES; Urine Blood Negative (Negative); Urine Ketones Negative (Negative); Urine Protein Negative (Neg-Trace)
[2024-06-09 12:07] LABS: Bacteria Urine 4+ (None Seen); Hyaline Casts Urine 0-2 /LPF (0-2); RBC Urine 0-2 /HPF (0-2); Squamous Epithelial Cell Urine 0-2 /HPF (0-2); UACC Culture Trigger YES; WBC Urine >50 /HPF (0-5)
[2024-06-09 12:18] LABS: Alanine Aminotransferase 8 U/L (0-31); Albumin Level 3.6 g/dL (3.5-5.0); Alkaline Phosphatase 84 U/L (39-117); Anion Gap 12 (12-20); Aspartate Amino Transferase 11 U/L (5-31); Bilirubin Direct 0.1 mg/dL (0.0-0.5); Bilirubin Total 0.4 mg/dL (0.0-1.0); Blood Urea Nitrogen 11 mg/dL (9-16); C Reactive Protein 0.61 mg/dL (< or = 0.50); Calcium 8.5 mg/dL (8.4-10.2); Carbon Dioxide 26 mmol/L (22-29); Chloride 110 mmol/L (96-108); Creatinine Clr Calc Pharmacy 78.4; Estimated Glomerular Filt Rate > 60; Glucose Random 68 mg/dL (60-115); Lipase 23 U/L (8-78); Magnesium 1.9 mg/dL (1.6-2.6); Potassium 3.6 mmol/L (3.3-5.1); Sodium 144 mmol/L (135-145); Total Protein 6.9 g/dL (6.5-8.0); Triglycerides 82 mg/dL (<150)
--- NOTE | 2024-06-09 12:19 | PC.NURSE ---
Patient not satisfied with initial IV placement in the R AC, lab obtained and IV line removed. Patient then stated she has stenosis and they usually have to call a specialist to get an IV in. additional IV line attempted, unsuccessful. Second RN attempting IV access now.
[2024-06-09 12:21] LABS: INTERNATIONAL NORM RATIO 0.9 (0.9-1.1); Prothrombin Time 10.6 SEC (10.9-12.4)
[2024-06-09 12:45] LABS: Troponin-I High Sensitivity < 2.7 ng/L (<3.5-17.0)
[2024-06-09 12:45] LABS: Erythrocyte Sedimentation Rate 29 MM/HR (0-20)
[2024-06-09] MEDS: cefTRIAXone sodium 1 GM in 0.9 % Sodium Chloride 50 ML IV (12:50)
[2024-06-09] MEDS: Morphine Sulfate 4 MG/ML CARTRIDGE IVPUSH (12:50)
[2024-06-09 13:06] VITALS: BP 161/70; PULSE 48; RESP 13; TEMP 36.5; O2SAT 98
[2024-06-09] MEDS: iohexoL 350 MG/ML 100 ML INFUS..BTL IV (13:26)
[2024-06-09 15:22] VITALS: BP 161/70; PULSE 48; RESP 13; TEMP 36.5; O2SAT 98
== END 2024-06-09 15:25 | disposition left against medical advice (07) ==
PROVIDERS: Physician Assistant; Physician Assistant Medical; Emergency Provider Emergency Medicine; PCP Student in an Organized Health Care Education/Training Program
DX: R10.12 Left upper quadrant pain (principal); M54.50 Low back pain, unspecified; Z79.899 Other long term (current) drug therapy; Z98.84 Bariatric surgery status
CPT/HCPCS: 36415; 74177; 80053; 81001; 81003; 82248; 83690; 83735; 84478; 84484; 85025; 85610; 85652; 86140; 87086; 87088; 87186; 96365; 96366; 96375; 99284; J0696; J2270; Q9967